=== PATIENT | male | born 2000 | race Caucasian/White ===

== ENCOUNTER 2024-06-11 18:19 | Emergency (ER) | payer OTHER ==
[~2024-06-11] VITALS: Ht 167.6 cm; Wt 93.0 kg
[2024-06-11] MEDS ORDERED: FLUOXETINE HCL10 M1 PO (18:31)
[2024-06-11] MEDS ORDERED: FLUOXETINE HYDR20 M1 PO (18:31)
[2024-06-11] MEDS ORDERED: HYDROXYZINE HCL25 MG PO (18:32)
[2024-06-11] MEDS ORDERED: ETOMIDATE 20 MG/10 ML VIAL IV ONE ×2 (19:15)
[2024-06-11] MEDS ORDERED: MORPHINE Sulfate 2 MG/ML SYR IV ONE ×2 (20:35→23:00)
[2024-06-12] MEDS ORDERED: Ondansetron Hydrochloride 4 MG/2 ML VIAL IV ONE (00:40)
== END 2024-06-12 01:03 | disposition short-term general hospital (02) ==
LOC: ED 18:19
DX: S43.005A Unspecified dislocation of left shoulder joint, initial encounter (principal); S51.812A Laceration without foreign body of left forearm, initial encounter; S60.812A Abrasion of left wrist, initial encounter; Z79.899 Other long term (current) drug therapy; V49.49XA Driver injured in collision with other motor vehicles in traffic accident, initial encounter; Y93.I9 Activity, other involving external motion; Y92.488 Other paved roadways as the place of occurrence of the external cause; Y99.8 Other external cause status